=== PATIENT | female | born 1990 | race African-American/Black ===

== ENCOUNTER 2022-05-13 12:14 | Emergency (ER) | payer OTHER ==
[~2022-05-13] VITALS: Ht 162.6 cm; Wt 58.2 kg
[2022-05-13 16:06] VITALS: BP 118/67
== END 2022-05-13 16:45 | disposition home or self-care (01) ==
LOC: M ED 12:14
DX: S69.91XA Unspecified injury of right wrist, hand and finger(s), initial encounter (principal); W22.8XXA Striking against or struck by other objects, initial encounter; Y92.89 Other specified places as the place of occurrence of the external cause